=== PATIENT | male | born 1990 | race Caucasian/White ===

== ENCOUNTER 2020-03-07 15:54 | Outpatient (CLI) | payer BC ==
--- NOTE | 2020-03-07 16:08 | RAD ---
EXAM: Chest PA and lateral: HISTORY: Dyspnea COMPARISON: None FINDINGS: Heart: Normal cardiac silhouette Aorta: Unremarkable Pulmonary vessels: Normal Costophrenic angles: Costophrenic angles are clear. Lungs: No consolidation or masses. Pneumothorax: No pneumothorax Osseous structures: No osseous abnormalities IMPRESSION: No acute cardiopulmonary process.
== END 2020-03-07 15:55 | disposition home or self-care (01) ==
LOC: BICRAD 15:54
PROVIDERS: ATTEND Family Medicine
DX: R06.00 Dyspnea, unspecified (principal)
CPT/HCPCS: 71046